=== PATIENT | male | born 1945 | race Caucasian/White ===

== ENCOUNTER 2017-04-12 08:14 | Day surgery (SDC) | payer BC, MEDICARE ==
[2017-04-12] MEDS ORDERED: Sodium Chloride 0.9% 10 ML Syringe FLUSH PRN (08:42)
[2017-04-12] MEDS ORDERED: Lactated Ringers 1,000 ML IV SCH (08:45)
[2017-04-12] MEDS ORDERED: Propofol 200 MG/20 ML SDV IV ONE (10:00)
--- NOTE | 2017-04-12 10:27 | PCM.OPNOTE ---
- General Post-Op/Procedure Note Date of Surgery/Procedure: 04/12/17 Operative Procedure(s): c scope Findings: normal colon Pre Op Diagnosis: hx of colon polyps Post-Op Diagnosis: normal colon Anesthesia Technique: MAC Primary Surgeon: Jordan Berrios Anesthesia Provider: Israel Hare Pathology: none Complications: None Condition: Good Free Text/Narrative:: see dictation
[2017-04-12 10:48] VITALS: BP 155/84
--- NOTE | 2017-04-12 14:28 | OR ---
DATE OF OPERATION: 04/12/2017 SURGEON: Jordan Berrios MD PROCEDURE PERFORMED: Colonoscopy. PREOPERATIVE DIAGNOSIS: Personal history of colon polyps. POSTOPERATIVE DIAGNOSIS: Normal colon. INDICATIONS FOR PROCEDURE: This is a 71-year-old white male referred for followup colonoscopy. His last one was 5 years ago. He was offered and accepted C-scope. DESCRIPTION OF PROCEDURE: After an excellent IV sedation was administered, digital rectal exam was performed. No marked abnormality was noted. Flexible colonoscope was inserted and advanced to the cecum without difficulty. The following findings were noted. Ascending colon, unremarkable. Transverse colon, unremarkable. Descending colon, unremarkable. Sigmoid and rectum, unremarkable. Colon was deflated as the scope was removed. The patient tolerated the procedure well and was taken to Recovery in good condition. /[id number] /KONGL
== END 2017-04-12 11:10 | disposition home or self-care (01) ==
LOC: FB.SDS 08:14
PROVIDERS: ATTEND Surgery
DX: Z12.11 Encounter for screening for malignant neoplasm of colon (principal); M10.9 Gout, unspecified; I10 Essential (primary) hypertension; E66.9 Obesity, unspecified; I25.10 Atherosclerotic heart disease of native coronary artery without angina pectoris; Z86.010 Personal history of colon polyps; Z79.899 Other long term (current) drug therapy; Z88.8 Allergy status to other drugs, medicaments and biological substances; Z98.61 Coronary angioplasty status; Z98.890 Other specified postprocedural states; Z79.82 Long term (current) use of aspirin
CPT/HCPCS: 00810; 45378; J2704; J7120

== ENCOUNTER 2018-02-09 04:40 | Emergency (ER) | payer MEDICARE, BC ==
[2018-02-09 05:16] VITALS: BP 172/82
--- NOTE | 2018-02-09 06:53 | ER ---
DATE SEEN: 02/09/2018 CHIEF COMPLAINT: Chest discomfort. HISTORY OF PRESENT ILLNESS: A 72-year-old male who complains of chest discomfort that started yesterday about 1000 hours in the morning. Pain was moderate, radiates to the jaw and makes his arms feel heavy. He describes it as tightness. This morning, he woke up at 0400 hours and was nauseated and decided to come to the ER. He has no shortness of breath, fever, or chills. No cough. PAST MEDICAL HISTORY: Coronary artery disease, hypertension, ED, gout. ALLERGIES: 3-HMG-CoA reductase inhibitors. PHYSICAL EXAMINATION: VITAL SIGNS: Blood pressure is 172/82, temperature 97.4. EARS, NOSE, AND THROAT: Negative. NECK: Supple. CHEST: Clear. ABDOMEN: Soft. MENTAL STATUS: Alert. DIAGNOSTIC DATA: Labs: Troponins negative. White cell count is 3.1. D-dimer is less than 100. Chest x-ray was unremarkable. EKG normal sinus rhythm. IMPRESSION: Atypical chest pain. PLAN: Observe for a few hours and repeat another troponin and EKG in 6 hours. If those are negative, I believe he could go home, but I will leave that to the discretion of the shift physician at that time. TIME SEEN: I saw him at 0545 hours. /[id number] DANIELA/PABLO
[2018-02-09] MEDS ORDERED: Aspirin 81 MG Tab.Chew PO ONE (09:27)
[2018-02-09] MEDS ORDERED: Heparin Sodium 5,000 Units/ML Vial IVPUSH ONE (09:28)
[2018-02-09] MEDS ORDERED: Heparin Sodium/0.45% NaCl 25,000 UNITS/500 ML BAG IV SCH (09:30)
[2018-02-09] MEDS ORDERED: Heparin Sodium/0.45% NaCl 500 ML ONE (09:34)
--- NOTE | 2018-02-09 10:55 | EDM.PDOC ---
ED HPI GENERAL MEDICAL PROBLEM - General Chief Complaint: Chest Pain Stated Complaint: CHEST PAIN Time Seen by Provider: 02/09/18 07:00 Source of Information: Reports: Patient, Old Records History Limitations: Reports: No Limitations - History of Present Illness INITIAL COMMENTS - FREE TEXT/NARRATIVE: pt seen earlier by Dr Williamson after change of shift I was asked to review repeat trop and EKG trop x 2 is neg, however repeat EKG shows inverted T in AVL that is now upright , pt was symptomatic on arrival he reports a 20 minute episode of exertional CP at 10 AM tomorrow when moving boxes in his workshop, relieved by rest this AM he awoke with nausea and L jaw pain, nausea became severe, took his ASA 325 mg, felt a little better on arrival at ED and had inverted T-wave on EKG as above not given additional meds here was given heparin 4000u bolus, then 1000 u/hr d/w Dr Lema hospitalist and Dr Ramos casting tester who agreed that pt's sxs concering for cardiac ischemia pt lives alone, worked EMT x 10y, was reluctant to go to [place] and then agreed he did have angioplasty x 1 (no stent) 15y ago and had severe N then as well never smoked, lipids unknown, has htn, brother suddenly age 50 from an [place], parents from cancer - Related Data Allergies Allergy/AdvReac Type Severity Reaction Status Date / Time [id number] Reductase AdvReac Mild STATIN Verified 04/11/17 09:56 Inhibitor CONTRAINDICATION INTOLERANCE Home Meds: Home Meds Allopurinol [Zyloprim] 300 mg PO DAILY 04/11/17 [History] Aspirin [Halfprin] 325 mg PO DAILY 04/11/17 [History] Metoprolol Succinate [Toprol XL] 200 mg PO DAILY 04/11/17 [History] Tadalafil [Cialis] 5 mg PO DAILY PRN 04/11/17 [History] Triamcinolone Acetonide [Kenalog 0.1% Crm] 1 applic TOP TID PRN 04/11/17 [ History] Past Medical History Cardiovascular History: Reports: CAD, High Cholesterol, Hypertension Respiratory History: Reports: None Gastrointestinal History: Reports: Colon Polyp Musculoskeletal History: Reports: Gout, Other (See Below) Other Musculoskeletal History: DUPUYTRENS, HYPOTHENAR MUSCULAR ATROPHY Endocrine/Metabolic History: Reports: Obesity/BMI 30+ - Infectious Disease History Infectious Disease History: Reports: None - Past Surgical History Other Cardiovascular Surgeries/Procedures: coronary artery balloon GI Surgical History: Reports: Colonoscopy Social & Family History - Family History Family Medical History: Unobtainable Other GI Family History: STATES FATHER OF COLON CANCER - Tobacco Use Smoking Status *Q: Never Smoker - Caffeine Use Caffeine Use: Reports: Coffee, Soda - Alcohol Use Days Per Week of Alcohol Use: 6 Number of Drinks Per Day: 2 Total Drinks Per Week: 12 - Recreational Drug Use Recreational Drug Use: No ED ROS GENERAL - Review of Systems Review Of Systems: See Below Constitutional: Reports: No Symptoms HEENT: Reports: No Symptoms Respiratory: Reports: No Symptoms Cardiovascular: Reports: Chest Pain Endocrine: Reports: No Symptoms GI/Abdominal: Reports: Nausea : Reports: No Symptoms Musculoskeletal: Reports: No Symptoms Skin: Reports: No Symptoms Neurological: Reports: No Symptoms Psychiatric: Reports: No Symptoms Hematologic/Lymphatic: Reports: No Symptoms Immunologic: Reports: No Symptoms ED EXAM, GENERAL - Physical Exam Exam: See Below Exam Limited By: No Limitations General Appearance: Alert, WD/WN, No Apparent Distress Nose: Normal Inspection Throat/Mouth: Normal Inspection Head: Atraumatic, Normocephalic Neck: Normal Inspection, Supple, Non-Tender, Full Range of Motion Respiratory/Chest: No Respiratory Distress, Lungs Clear, Normal Breath Sounds Cardiovascular: Regular Rate, Rhythm, No Edema, No Rub, Other (2/6 JA at LSB) GI/Abdominal: Soft, Non-Tender, No Distention Back Exam: Normal Inspection, Full Range of Motion, NT Extremities: Normal Inspection, Normal Range of Motion, Non-Tender, No Pedal Edema Neurological: Alert, Oriented, CN II-XII Intact, Normal Cognition, No Motor/ Sensory Deficits Psychiatric: Normal Affect, Normal Mood Skin Exam: Warm, Dry, Intact, Normal Color, No Rash Lymphatic: No Adenopathy Course - Vital Signs Last Recorded V/S: Last Vital Signs Temp 36.3 C 02/09/18 04:40 Pulse 73 02/09/18 04:40 Resp 14 02/09/18 04:40 BP 172/82 H 02/09/18 04:40 Pulse Ox 100 02/09/18 04:40 - Orders/Labs/Meds Orders: Active Orders 24 hr Category Date Time Status EKG Documentation Completion [RC] ASDIRECTED Care 04/13/18 10:00 Active Chest 2V [CR] Stat Exams 02/09/18 04:59 Taken TROPONIN I [CHEM] Routine Lab 02/09/18 10:00 Ordered Heparin Sodium/0.45% NaCl [Heparin 25,000 Units in 1/2 Med 02/09/18 09:30 Ordered NS 500 ML] 25,000 units in 500 ml IV TITRATE EKG 12 Lead [EK] Routine Ther 02/09/18 04:58 Ordered EKG 12 Lead [EK] Routine Ther 02/09/18 07:15 Ordered Medication Orders Heparin Sodium/Sodium Chloride (Heparin 25,000 Units In 1/2 Ns 500 Ml) 25,000 units in 500 mls @ 23.78 mls/hr IV TITRATE JENNIFER; Protocol Last Admin: 02/09/18 09:46 Dose: 12 units/kg/hr, 23.78 mls/hr Labs: Laboratory Tests 02/09/18 02/09/18 02/09/18 Range/Units 05:00 05:00 05:00 WBC 3.1 L (4.5-12.0) X10-3/uL RBC 3.89 L (4.30-5.75) x10(6)uL Hgb 13.7 (11.5-15.5) g/dL Hct 39.4 (30.0-51.3) % MCV 101.1 H (80-96) fL MCH 35.1 H (27.7-33.6) pg MCHC 34.7 (32.2-35.4) g/dL RDW 12.6 (11.5-15.5) % Plt Count 139 (125-369) X10(3)uL MPV 7.2 L (7.4-10.4) fL Neut % (Auto) 55.3 (46-82) % Lymph % (Auto) 31.8 (13-37) % [place] % (Auto) 8.9 (4-12) % Eos % (Auto) 3 (1.0-5.0) % Baso % (Auto) 1 (0-2) % Neut # (Auto) 1.7 (1.6-8.3) # Lymph # (Auto) 1.0 (0.6-5.0) # [place] # (Auto) 0.3 (0.0-1.3) # Eos # (Auto) 0.1 (0.0-0.8) # Baso # (Auto) 0.0 (0.0-0.2) # D-Dimer, Quantitative (100-400) ng/mL Sodium 144 (135-145) mmol/L Potassium 3.8 (3.5-5.3) mmol/L Chloride 108 (100-110) mmol/L Carbon Dioxide 26 (21-32) mmol/L BUN 15 (7-18) mg/dL Creatinine 0.9 (0.70-1.30) mg/dL Est Cr Clr Drug Dosing TNP Estimated GFR (MDRD) > 60 (>60) BUN/Creatinine Ratio 16.7 (9-20) Glucose 106 (80-116) mg/dL Calcium 9.0 (8.6-10.2) mg/dL Total Bilirubin 0.7 (0.1-1.3) mg/dL AST 39 H (5-25) IU/L ALT 62 H (12-36) U/L Alkaline Phosphatase 51 L (56-112) IU/L Troponin I < 0.017 L (<0.017-0.056) ng/mL NT-Pro-B Natriuret Pep 68 (<=125) pg/mL Total Protein 7.1 (6.0-8.0) g/dL Albumin 3.7 (3.2-4.6) g/dL Globulin 3.4 g/dL Albumin/Globulin Ratio 1.1 02/09/18 02/09/18 Range/Units 05:00 07:30 WBC (4.5-12.0) X10-3/uL RBC (4.30-5.75) x10(6)uL Hgb (11.5-15.5) g/dL Hct (30.0-51.3) % MCV (80-96) fL MCH (27.7-33.6) pg MCHC (32.2-35.4) g/dL RDW (11.5-15.5) % Plt Count (125-369) X10(3)uL MPV (7.4-10.4) fL Neut % (Auto) (46-82) % Lymph % (Auto) (13-37) % [place] % (Auto) (4-12) % Eos % (Auto) (1.0-5.0) % Baso % (Auto) (0-2) % Neut # (Auto) (1.6-8.3) # Lymph # (Auto) (0.6-5.0) # [place] # (Auto) (0.0-1.3) # Eos # (Auto) (0.0-0.8) # Baso # (Auto) (0.0-0.2) # D-Dimer, Quantitative < 100 L (100-400) ng/mL Sodium (135-145) mmol/L Potassium (3.5-5.3) mmol/L Chloride (100-110) mmol/L Carbon Dioxide (21-32) mmol/L BUN (7-18) mg/dL Creatinine (0.70-1.30) mg/dL Est Cr Clr Drug Dosing Estimated GFR (MDRD) (>60) BUN/Creatinine Ratio (9-20) Glucose (80-116) mg/dL Calcium (8.6-10.2) mg/dL Total Bilirubin (0.1-1.3) mg/dL AST (5-25) IU/L ALT (12-36) U/L Alkaline Phosphatase (56-112) IU/L Troponin I < 0.017 L (<0.017-0.056) ng/mL NT-Pro-B Natriuret Pep (<=125) pg/mL Total Protein (6.0-8.0) g/dL Albumin (3.2-4.6) g/dL Globulin g/dL Albumin/Globulin Ratio Meds: Medications Generic Name Dose Route Start Last Admin Trade Name Freq PRN Reason Stop Dose Admin Heparin Sodium/Sodium Chloride 25,000 units in 500 mls @ 23.78 mls/hr 09:30 02/09/18 09:46 Heparin 25,000 Units In 1/2 Ns 500 Ml IV 12 units/kg/hr TITRATE JENNIFER 23.78 mls/hr Administration Protocol 12 UNITS/KG/HR Discontinued Medications Generic Name Dose Route Start Last Admin Trade Name Freq PRN Reason Stop Dose Admin Aspirin 324 mg 02/09/18 09:27 02/09/18 09:54 Aspirin PO 02/09/18 09:28 Not Given ONETIME ONE Heparin Sodium (Porcine) 4,000 units 02/09/18 09:28 02/09/18 09:50 Heparin Sodium IVPUSH 02/09/18 09:29 4,000 units ONETIME ONE Administration Heparin Sodium/Sodium Chloride Confirm 02/09/18 09:34 Heparin 25,000 Units In 1/2 Ns 500 Ml Administered 02/09/18 09:35 Dose 500 mls @ as directed .ROUTE .STK-MED ONE Departure - Departure Time of Disposition: 10:45 Disposition: DC/Tfer to [facility] Reason for Transfer *Q: Other Condition: Good Clinical Impression: Acute coronary syndrome, Abnormal EKG, Inverted T wave Referrals: Snow Roberson PA [Primary Care Provider] - Forms: ED Department Discharge - My Orders Last 24 Hours: My Active Orders 02/09/18 07:15 EKG 12 Lead [EK] Routine 02/09/18 09:30 Heparin Sodium/0.45% NaCl [Heparin 25,000 Units in 1/2 NS 500 ML] 25,000 units in 500 ml IV TITRATE - Assessment/Plan Last 24 Hours: My Active Orders 02/09/18 07:15 EKG 12 Lead [EK] Routine 02/09/18 09:30 Heparin Sodium/0.45% NaCl [Heparin 25,000 Units in 1/2 NS 500 ML] 25,000 units in 500 ml IV TITRATE
--- NOTE | 2018-02-09 12:07 | CR ---
INDICATION: Chest heaviness. CHEST: PA and lateral views of the chest, 02/09/2018, were compared with 2008, and revealed the heart to remain normal in size and shape. The mediastinum and bony thorax were unremarkable. Overlying EKG leads are noted. An active infiltrate or effusion was not identified. IMPRESSION: No significant active disease identified. MTDD
== END 2018-02-09 10:30 ==
LOC: FB.ED 04:40
DX: I24.9 Acute ischemic heart disease, unspecified (principal); R94.31 Abnormal electrocardiogram [ECG] [EKG]; I10 Essential (primary) hypertension; E78.00 Pure hypercholesterolemia, unspecified; Z88.8 Allergy status to other drugs, medicaments and biological substances; Z79.82 Long term (current) use of aspirin; Z79.899 Other long term (current) drug therapy
CPT/HCPCS: 36415; 71046; 80053; 83880; 84484; 85025; 85379; 93005; 93010; 96365; 99285; J1644